=== PATIENT | female | born 1975 | race Caucasian/White ===

== ENCOUNTER → 2018-11-05 | Outpatient (REF) | payer OTHER, MEDICAID ==
[~2018-11-05] MED LIST: CIPR500T89 PO; PERC7.5T12 PO; [UNRECOGNIZED DRUG - CODE] PO; [UNRECOGNIZED DRUG - OTHER] OR; [UNRECOGNIZED DRUG - OTHER] OR; [UNRECOGNIZED DRUG - OTHER] OR; biotin OR; colace OR; cymbalta OR; flomax OR; geodon PO; lamictal OR; topamax OR; vicodin OR
[2018-11-06 12:44] LABS: AMORPHOUS SEDIMENT SMALL (NEGATIVE); APPEARANCE, URINE CLOUDY (CLEAR); BACTERIA, URINE AUTO NEGATIVE (NEGATIVE); BILIRUBIN, URINE AUTO NEGATIVE (NEGATIVE); BLOOD, URINE BLOOD NEGATIVE (NEGATIVE); CALCIUM OXALATE CRYSTALS SMALL; COLOR, URINE YELLOW (YELLOW); GLUCOSE, URINE (UA) AUTO NEGATIVE (NEGATIVE); KETONE, URINE AUTO NEGATIVE (NEGATIVE); LEUKOCYTE ESTERASE, URINE AUTO TRACE (NEGATIVE); MUCUS, URINE SMALL (NEGATIVE); NITRITE, URINE AUTO NEGATIVE (NEGATIVE); PROTEIN, URINE AUTO NEGATIVE (NEGATIVE); RBC, URINE AUTO 3 /HPF (0-3); SPECIFIC GRAVITY URINE AUTO 1.016 (1.002-1.035); SQUAMOUS EPITHELIAL CELL UR AU 8 /HPF (0-6); UROBILINOGEN, URINE AUTO 0.2 mg/dL (0.0-2.0); WBC, URINE AUTO 2 /HPF (0-3)
== END ==
LOC: M SFHCPLAZ 09:22
PROVIDERS: ATTEND Internal Medicine Infectious Disease
DX: R30.0 Dysuria (principal); Z86.14 Personal history of Methicillin resistant Staphylococcus aureus infection; R19.7 Diarrhea, unspecified

== ENCOUNTER → 2018-12-04 | Outpatient (REF) | payer OTHER, MEDICAID ==
[2018-12-04 14:16] LABS: BASO # 0.1 10^3/uL (0.0-0.2); EOS # 0.4 10^3/uL (0.0-0.50); EOS % 7.8 % (0.0-3.0); HEMATOCRIT 36.8 % (36.0-47.0); HEMOGLOBIN 12.4 g/dl (12.0-15.5); MEAN CORPUSCULAR HEMOGLOBIN 31.3 pg (27.0-33.0); MEAN CORPUSCULAR HGB CONC 33.7 g/dl (32.0-36.5); MEAN CORPUSCULAR VOLUME 92.9 fl (80.0-96.0); MONO # 0.4 10^3/uL (0.0-0.8); NEUTROPHILS # 3.3 10^3/uL (1.8-7.7); PLATELET COUNT, AUTOMATED 271 10^3/uL (150-450); RED BLOOD COUNT 3.96 10^6/uL (4.00-5.40); WHITE BLOOD COUNT 5.2 10^3/uL (4.0-10.0)
[2018-12-04 14:41] LABS: HEMOGLOBIN A1c 5.5 %
[2018-12-04 14:47] LABS: ERYTHROCYTE SEDIMENTATION RATE 17 mm/hr (0-20)
[2018-12-04 14:50] LABS: ALBUMIN 4.2 GM/DL (3.2-5.2); ALT/SGPT 27 U/L (12-78); BILIRUBIN,TOTAL 0.4 MG/DL (0.2-1.0); BLOOD UREA NITROGEN 15 MG/DL (7-18); CALCIUM LEVEL 9.4 MG/DL (8.5-10.1); CARBON DIOXIDE LEVEL 29 MEQ/L (21-32); CHLORIDE LEVEL 103 MEQ/L (98-107); CREATININE FOR GFR 0.86 MG/DL (0.55-1.30); GLOMERULAR FILTRATION RATE > 60.0 (>58); GLUCOSE, FASTING 116 MG/DL (70-100); POTASSIUM SERUM 3.7 MEQ/L (3.5-5.1); RHEUMATOID FACTOR QUANT < 10.0 IU/ML (<15.0); SODIUM LEVEL 138 MEQ/L (136-145); THYROID STIMULATING HORMONE 0.698 uIU/ML (0.358-3.740); VITAMIN B12 LEVEL 871 PG/ML
[2018-12-04 14:51] LABS: FOLATE > 24.0 NG/ML
[2018-12-09 07:26] LABS: ALBUMIN 4.26 GM/DL (3.29-5.55); ALBUMIN % 60.9 % (55.8-66.1); ALPHA-1-GLOBULIN % 4.8 % (2.9-4.9); ALPHA-1-GLOBULINS 0.34 GM/DL (0.17-0.41); ALPHA-2-GLOBULINS 0.83 GM/DL (0.42-0.99); ALPHA-2-GLOBULINS % 11.9 % (7.1-11.8); BETA-1-GLOBULINS % 5.7 % (4.7-7.2); BETA-2-GLOBULINS 0.29 GM/DL (0.19-0.55); BETA-2-GLOBULINS % 4.1 % (3.2-6.5); GAMMA GLOBULIN % 12.6 % (11.1-18.8); GAMMA GLOBULINS 0.88 GM/DL (0.65-1.58)
[2018-12-09 19:10] LABS: ANCA-ATYPICAL <1:20 titer (Neg:<1:20); ANTI DOUBLE STRAND-DNA AB 1 IU/mL (0-9); ANTINUCLEAR ANTIBODIES DIRECT Negative (Negative); CERULOPLASMIN 31.7 mg/dL (19.0-39.0); COPPER PLASMA 136 ug/dL (72-166); CYTOPLASMIC NEUTROP AB ANCA-C <1:20 titer (Neg:<1:20); LEAD BLOOD ADULT <1 ug/dL (0-4); MERCURY LEVEL None Detected ug/L (0.0-14.9); PERINUCLEAR AB ANCA-P <1:20 titer (Neg:<1:20); SJOGREN'S ANTI SS-A <0.2 AI (0.0-0.9); SJOGREN'S ANTI SS-B <0.2 AI (0.0-0.9); VITAMIN B1 LEVEL WHOLE BLOOD 173.1 nmol/L (66.5-200.0); VITAMIN B6,PYRIDOXAL PHOSPHATE 62.2 ug/L (2.0-32.8); VITAMIN E(ALPHA TOCOPHEROL) 10.5 mg/L (7.0-25.1); VITAMIN E(GAMMA TOCOPHEROL) 1.2 mg/L (0.5-5.5)
== END ==
LOC: M LABNEURO 10:38
PROVIDERS: ATTEND Psychiatry & Neurology Neurology
DX: G62.9 Polyneuropathy, unspecified (principal)

== ENCOUNTER 2019-01-29 09:16 | Day surgery (SDC) | payer OTHER ==
[~2019-01-29] VITALS: Ht 157.5 cm; Wt 58.1 kg
[~2019-01-29 09:16] MED LIST changes: +ATOR1TAB21 PO; +BIOT1TAB PO; +BUSP1TAB PO; +CLON1TAB8 PO; +CYCL10TA PO; +CYMB60CA3 PO; +DIAZ2TAB PO; +DULO60CA35 PO; +FLUOCRE; +HAIR1TAB5 PO; +IBUP80TA PO; +LOPE2CAP PO; +MECL12.575 PO; +MUPI2OI; +NS 1,000 ML IV ONE; +OMEP20CA3 PO; +OXYC15TA76 PO; +POTA10TA14 PO; +PREG100CA PO; +PREG50CA PO; +REXU1TAB2 PO; +REXU1TAB3 PO; +SPIR-10 PO; +TIZA4CAP PO; +TOLT4CAP3 PO; +VENTAER IH; +VITA500079 PO; +VYVA70CA3 PO; +[UNRECOGNIZED DRUG - CODE] PO
[2019-01-29] MEDS ORDERED: PROPOFOL 500 MG/50 ML VIAL As Ordered ONE (09:35)
[2019-01-29] MEDS ORDERED: LIDOCAINE 2% INJ 100 MG/5 ML SDV (FOR ANES.) As Ordered ONE (11:14)
--- NOTE | 2019-01-29 11:36 | ROOR ---
Patient Name: Inga Mccoy Procedure Date: 01/29/2019 10:54 AM Date of : 1975 Age: 43 Room: [facility] Gender: Female Note Status: Finalized Procedure: Upper GI endoscopy Indications: Epigastric abdominal pain Providers: Chris Sommer MD Referring MD: Christine Grijalva Requesting Provider: Medicines: Monitored Anesthesia Care Complications: No immediate complications. Procedure: Pre-Anesthesia Assessment: - Prior to the procedure, a History and Physical was performed, and patient medications and allergies were reviewed. The patient is competent. The risks and benefits of the procedure and the sedation options and risks were discussed with the patient. All questions were answered and informed consent was obtained. Patient identification and proposed procedure were verified by the physician, the nurse and the anesthesiologist in the procedure room. Mental Status Examination: alert and oriented. Airway Examination: normal oropharyngeal airway and neck mobility. Respiratory Examination: clear to auscultation. CV Examination: normal. Prophylactic Antibiotics: The patient does not require prophylactic antibiotics. Prior Anticoagulants: The patient has taken no previous anticoagulant or antiplatelet agents. ASA Grade Assessment: II - A patient with mild systemic disease. After reviewing the risks and benefits, the patient was deemed in satisfactory condition to undergo the procedure. The anesthesia plan was to use monitored anesthesia care (MAC). Immediately prior to administration of medications, the patient was re-assessed for adequacy to receive sedatives. The heart rate, respiratory rate, oxygen saturations, blood pressure, adequacy of pulmonary ventilation, and response to care were monitored throughout the procedure. The physical status of the patient was re-assessed after the procedure. The Endoscope was introduced through the mouth, and advanced to the second part of duodenum. The upper GI endoscopy was accomplished without difficulty. The patient tolerated the procedure well. Findings: The Z-line was regular and was found 36 cm from the incisors. LA Grade A (one or more mucosal breaks less than 5 mm, not extending between tops of 2 mucosal folds) esophagitis with no bleeding was found in the distal esophagus. Biopsies were taken with a cold forceps for histology. Verification of patient identification for the specimen was done by the physician and nurse using the patient's name, date and medical record number. Estimated blood loss was minimal. Scattered minimal inflammation characterized by erythema and granularity was found in the gastric antrum. Biopsies were taken with a cold forceps for Helicobacter pylori testing. No gross lesions were noted in the duodenal bulb and in the second portion of the duodenum. Biopsies for histology were taken with a cold forceps for evaluation of celiac disease. Impression: - Z-line regular, 36 cm from the incisors. - LA Grade A reflux esophagitis. Biopsied. - Gastritis. Biopsied. - No gross lesions in the duodenal bulb and in the second portion of the duodenum. Biopsied. Recommendation: - Patient has a contact number available for emergencies. The signs and symptoms of potential delayed complications were discussed with the patient. Return to normal activities tomorrow. Written discharge instructions were provided to the patient. - Resume previous diet. - Follow an antireflux regimen. - Await pathology results. - Based on the biopsy results you will receive a phone call from GI clinic in 2-3 weeks to review the pathology results AND/OR your results will be faxed to your Primary care physician. - Return to primary care physician. Chris Sommer MD Chris Sommer MD 01/29/2019 11:35:37 AM Electronically signed by Chris Sommer MD Number of Addenda: 0 Note Initiated On: 01/29/2019 10:54 AM Estimated Blood Loss: Estimated blood loss was minimal.
--- NOTE | 2019-01-29 11:39 | ROOR ---
Patient Name: Inga Mccoy Procedure Date: 01/29/2019 10:55 AM Date of : 1975 Age: 43 Room: [facility] Gender: Female Note Status: Finalized Procedure: Colonoscopy Indications: Chronic diarrhea Providers: Chris Sommer MD Referring MD: Christine Grijalva Requesting Provider: Medicines: Monitored Anesthesia Care Complications: No immediate complications. Procedure: Pre-Anesthesia Assessment: - Prior to the procedure, a History and Physical was performed, and patient medications and allergies were reviewed. The patient is competent. The risks and benefits of the procedure and the sedation options and risks were discussed with the patient. All questions were answered and informed consent was obtained. Patient identification and proposed procedure were verified by the physician, the nurse and the anesthesiologist in the procedure room. Mental Status Examination: alert and oriented. Airway Examination: normal oropharyngeal airway and neck mobility. Respiratory Examination: clear to auscultation. CV Examination: normal. Prophylactic Antibiotics: The patient does not require prophylactic antibiotics. Prior Anticoagulants: The patient has taken no previous anticoagulant or antiplatelet agents. ASA Grade Assessment: II - A patient with mild systemic disease. After reviewing the risks and benefits, the patient was deemed in satisfactory condition to undergo the procedure. The anesthesia plan was to use monitored anesthesia care (MAC). Immediately prior to administration of medications, the patient was re-assessed for adequacy to receive sedatives. The heart rate, respiratory rate, oxygen saturations, blood pressure, adequacy of pulmonary ventilation, and response to care were monitored throughout the procedure. The physical status of the patient was re-assessed after the procedure. The Colonoscope was introduced through the anus and advanced to the terminal ileum, with identification of the appendiceal orifice and IC valve. The colonoscopy was performed without difficulty. The patient tolerated the procedure well. The quality of the bowel preparation was good. The terminal ileum, ileocecal valve, appendiceal orifice, and rectum were photographed. Scope insertion time was 3 minutes. Scope withdrawal time was 9 minutes. The total duration of the procedure was 12 minutes. Findings: The perianal and digital rectal examinations were normal. The terminal ileum appeared normal. A diffuse area of moderate melanosis was found from cecum to descending colon. Biopsies for histology were taken with a cold forceps from the right colon, left colon, transverse colon and rectosigmoid colon for evaluation of microscopic colitis. Verification of patient identification for the specimen was done by the physician and nurse using the patient's name, date and medical record number. Estimated blood loss was minimal. Non-bleeding external and internal hemorrhoids were found during retroflexion. The hemorrhoids were medium-sized. Impression: - The examined portion of the ileum was normal. - Melanosis in the colon. Biopsied. - Non-bleeding external and internal hemorrhoids. Recommendation: - Patient has a contact number available for emergencies. The signs and symptoms of potential delayed complications were discussed with the patient. Return to normal activities tomorrow. Written discharge instructions were provided to the patient. - Resume previous diet. - Continue present medications. - Await pathology results. - Repeat colonoscopy in 5-10 years for screening purposes. - Based on the biopsy results you will receive a phone call from GI clinic in 2-3 weeks to review the pathology results AND/OR your results will be faxed to your Primary care physician. - Return to primary care physician. Chris Sommer MD Chris Smomer MD 01/29/2019 11:39:09 AM Electronically signed by Chris Sommer MD Number of Addenda: 0 Note Initiated On: 01/29/2019 10:55 AM Estimated Blood Loss: Estimated blood loss was minimal.
[2019-01-29 12:00] VITALS: BP 121/80
== END 2019-01-29 12:13 | disposition home or self-care (01) ==
LOC: M OPP 09:16
PROVIDERS: ATTEND Internal Medicine Gastroenterology
DX: K64.8 Other hemorrhoids (principal); K52.9 Noninfective gastroenteritis and colitis, unspecified; R19.7 Diarrhea, unspecified; R10.13 Epigastric pain; K29.70 Gastritis, unspecified, without bleeding; K21.0 Gastro-esophageal reflux disease with esophagitis

== ENCOUNTER → 2019-03-11 | Outpatient (REF) | payer OTHER ==
[~2019-03-11] MED LIST changes: -NS 1,000 ML IV ONE
[2019-03-11 12:49] LABS: HEMOGLOBIN A1c 5.9 %
[2019-03-11 12:59] LABS: FREE T4 1.12 NG/DL (0.76-1.46); THYROID STIMULATING HORMONE 0.941 uIU/ML (0.358-3.740); TOTAL T3 129.3 NG/DL (60.0-181.0)
[2019-03-12 10:58] LABS: HEPATITIS C VIRUS ABY INDEX 0.1 INDEX (<0.8); HIV 1&2 SCREEN CENTAUR NEGATIVE (NEGATIVE)
== END ==
LOC: M SFHCPLAZ 08:50
PROVIDERS: ATTEND Internal Medicine Infectious Disease
DX: R63.4 Abnormal weight loss (principal); R19.7 Diarrhea, unspecified; R74.8 Abnormal levels of other serum enzymes

== ENCOUNTER 2019-04-08 11:32 | Emergency (ER) | payer OTHER ==
[~2019-04-08] VITALS: Ht 157.5 cm; Wt 59.1 kg
[2019-04-08 12:01] VITALS: BP 137/85
[2019-04-08] MEDS ORDERED: LORazepam 2 MG TAB PO STA (12:31)
[2019-04-08] MEDS ORDERED: IBUPROFEN 600 MG TAB PO ONE (13:15)
[2019-04-08 13:45] LABS: HEMATOCRIT 42.1 % (36.0-47.0); HEMOGLOBIN 14.2 g/dl (12.0-15.5); MEAN CORPUSCULAR HEMOGLOBIN 31.8 pg (27.0-33.0); MEAN CORPUSCULAR HGB CONC 33.7 g/dl (32.0-36.5); MEAN CORPUSCULAR VOLUME 94.2 fl (80.0-96.0); PLATELET COUNT, AUTOMATED 287 10^3/uL (150-450); RED BLOOD COUNT 4.47 10^6/uL (4.00-5.40); WHITE BLOOD COUNT 8.1 10^3/uL (4.0-10.0)
[2019-04-08 14:16] LABS: ACETAMINOPHEN LEVEL < 2.0 UG/ML (10.0-30.0); ALT/SGPT 43 U/L (12-78); BILIRUBIN,DIRECT 0.1 MG/DL (0.0-0.2); BILIRUBIN,TOTAL 0.3 MG/DL (0.2-1.0); BLOOD UREA NITROGEN 21 MG/DL (7-18); CALCIUM LEVEL 9.9 MG/DL (8.5-10.1); CARBON DIOXIDE LEVEL 27 MEQ/L (21-32); CHLORIDE LEVEL 104 MEQ/L (98-107); CREATININE FOR GFR 0.93 MG/DL (0.55-1.30); ETHYL ALCOHOL (ETHANOL) < 0.003 % (0.000-0.010); GLOMERULAR FILTRATION RATE > 60.0 (>58); GLUCOSE, FASTING 107 MG/DL (70-100); SALICYLATE LEVEL 3.2 MG/DL (5.0-30.0); SODIUM LEVEL 140 MEQ/L (136-145); THYROID STIMULATING HORMONE 0.721 uIU/ML (0.358-3.740); TOTAL PROTEIN 7.7 GM/DL (6.4-8.2)
[2019-04-08] MEDS ORDERED: ALPR1TAB3 (14:19)
[2019-04-08] MEDS ORDERED: REXU1TAB5 (14:19)
[2019-04-08] MEDS ORDERED: oxyCODONE 5MG TAB PO ONE (14:45)
== END 2019-04-08 17:20 | disposition home or self-care (01) ==
LOC: M ED 11:32
DX: F41.9 Anxiety disorder, unspecified (principal); F32.9 Major depressive disorder, single episode, unspecified; J45.909 Unspecified asthma, uncomplicated; Z87.442 Personal history of urinary calculi; F19.10 Other psychoactive substance abuse, uncomplicated; M79.7 Fibromyalgia; R05 Cough; R63.4 Abnormal weight loss; Z86.14 Personal history of Methicillin resistant Staphylococcus aureus infection; F12.10 Cannabis abuse, uncomplicated; Z72.0 Tobacco use; Z79.899 Other long term (current) drug therapy; Z91.041 Radiographic dye allergy status; Z88.0 Allergy status to penicillin; Z88.2 Allergy status to sulfonamides
CPT/HCPCS: 36415; 80048; 80076; 84443; 85027; 99284; G0480

== ENCOUNTER 2019-04-09 15:22 | Emergency (ER) | payer OTHER ==
[~2019-04-09] VITALS: Ht 157.5 cm; Wt 59.1 kg
[~2019-04-09 15:22] MED LIST changes: +ALPR1TAB3; +REXU1TAB5
[2019-04-09 15:31] VITALS: BP 122/80
== END 2019-04-09 20:59 | disposition left against medical advice (07) ==
LOC: M ED 15:22
DX: Z76.0 Encounter for issue of repeat prescription (principal); I10 Essential (primary) hypertension; F41.9 Anxiety disorder, unspecified; F32.9 Major depressive disorder, single episode, unspecified; M79.7 Fibromyalgia; J45.909 Unspecified asthma, uncomplicated; Z86.14 Personal history of Methicillin resistant Staphylococcus aureus infection; F17.200 Nicotine dependence, unspecified, uncomplicated; Z88.0 Allergy status to penicillin; Z88.2 Allergy status to sulfonamides; Z91.041 Radiographic dye allergy status; Z79.899 Other long term (current) drug therapy

== ENCOUNTER 2019-08-10 07:28 | Day surgery (SDC) | payer OTHER ==
[~2019-08-10] VITALS: Ht 157.5 cm; Wt 74.4 kg
[~2019-08-10 07:28] MED LIST changes: +LR 1,000 ML IV ONE; +LevoFLOXacin IV 500 MG in IV 1 EA IV ONE; +MM S100C PO; -OMEP20CA3 PO; +OMEP20CA4 PO; +SENN8.6T28 PO; +[UNRECOGNIZED DRUG - OTHER] PO
[2019-08-10] MEDS ORDERED: dexameTHASONE 4 MG/ML 1ML VIAL (J1100) As Ordered ONE (09:11)
[2019-08-10] MEDS ORDERED: fentaNYL 100 MCG/2 ML INJECTION (J3010) As Ordered ONE ×2 (09:11→12:09)
[2019-08-10] MEDS ORDERED: ONDANSETRON 4MG/2ML VIAL (J2405) As Ordered ONE ×2 (09:11→12:08)
[2019-08-10] MEDS ORDERED: MIDAZOLAM INJ 2 MG/2 ML VIAL (J2250) As Ordered ONE (09:11)
[2019-08-10] MEDS ORDERED: LIDOCAINE 2% INJ 100 MG/5 ML SDV (FOR ANES.) As Ordered ONE (09:11)
[2019-08-10] MEDS ORDERED: PROPOFOL 200 MG/20 ML VIAL As Ordered ONE (09:11)
[2019-08-10] MEDS ORDERED: CONRAY-60 60% 50ML VIAL (Q9961) As Ordered ONE (11:10)
[2019-08-10] MEDS ORDERED: ACETAMINOPHEN 1000MG 100ML IV BTL (OFIRMEV) (J0131 PER 10MG) As Ordered ONE (11:15)
[2019-08-10] MEDS ORDERED: ePHEDrine SULFATE 25 MG/5 ML(5MG/ML) SYRINGE As Ordered ONE (11:19)
[2019-08-10] MEDS ORDERED: PHENYLephrine HCL 500 MCG/5 ML (100MCG/ML) SYRINGE (J2370) As Ordered ONE (11:19)
--- NOTE | 2019-08-10 12:10 | REP ---
C-ARM VIEW ABDOMEN: C-arm view abdomen performed. Left ureteral stent is visualized. The distal end is coiled in the urinary bladder. The proximal end is coiled in the region of the left renal collecting system. 9 seconds fluoroscopy time utilized. Electronically Signed by Juan Rooney MD 08/11/2019 11:46 A
[2019-08-10] MEDS ORDERED: ONDANSETRON 4MG/2ML VIAL (J2405) IV PRN (12:15)
[2019-08-10] MEDS ORDERED: LR 1,000 ML IV SCH (12:15)
[2019-08-10] MEDS ORDERED: OXYB5TAB2 PO ×2 (12:19→12:41)
[2019-08-10] MEDS ORDERED: MACR100C43 PO ×2 (12:19→12:41)
[2019-08-10] MEDS ORDERED: NORC1TAB7 PO ×2 (12:19→12:41)
[2019-08-10] MEDS: fentaNYL 100 MCG/2 ML INJECTION (J3010) IV PRN ×4 (12:24→12:53)
[2019-08-10] MEDS: PERCOCET 5MG/325MG TAB PO PRN ×2 (12:24→12:53)
[2019-08-10 13:50] VITALS: BP 106/63
--- NOTE | 2019-08-11 06:37 | RO ---
DATE OF PROCEDURE: 08/10/2019 PREOPERATIVE DIAGNOSIS: Left ureteral stone with history of infection. POSTOPERATIVE DIAGNOSIS: Left ureteral stone with history of infection. PROCEDURE PERFORMED: Left ureteroscopic stone extraction. 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 INDICATION: This 44-year-old lady with a long history of recurrent urolithiasis had a stent placed for a presumed infected stone at an outside facility. She comes now for stone removal. PROCEDURE: After obtaining informed consent from the patient, she was taken to the operating room where after sufficient anesthetic, she was prepped and draped in the usual manner. A 22-Moroccan diagnostic cystoscope was advanced to the bladder. The stent was visualized, grasped and withdrawn to the urethral meatus. The stent was was cannulated with an 0.038 inch Glidewire and the flexible ureteroscope passed to the kidney over the wire without difficulty. We then brought the scope back into the ureter and identified the stone near the ureteropelvic junction and the proximal ureter. We were able to grasp this with a 1.9 Moroccan basket and withdraw it without difficulty. We then reinspected the collecting system. There was a fair amount of clot both in the kidney and bladder and we felt that further stenting was indicated for this region. The wire was repassed and the procedure was concluded with placement of a 6 Moroccan universal stent with the string left attached. The bladder was emptied and the patient went to recovery in satisfactory condition. DISPOSITION: Dismissed home on Macrobid 100 mg at bedtime, oxybutynin ER 5 mg daily and Troy 5 one by mouth every 4 hours as needed for pain. Diet as tolerated. Activity light. Followup in 5-7 days for stent removal. She is not to pull the string. Addendum: Pharmacy calls to report pt on pain mgmt contract with recent refill of narcotics - Troy Rx from today was cancelled. [facility]
== END 2019-08-10 13:55 | disposition home or self-care (01) ==
LOC: M SDC 07:28
PROVIDERS: ATTEND Urology
DX: N20.1 Calculus of ureter (principal); I10 Essential (primary) hypertension; E78.00 Pure hypercholesterolemia, unspecified; K58.9 Irritable bowel syndrome, unspecified; K21.9 Gastro-esophageal reflux disease without esophagitis; M79.7 Fibromyalgia; F41.9 Anxiety disorder, unspecified; F25.9 Schizoaffective disorder, unspecified; F32.9 Major depressive disorder, single episode, unspecified; G43.909 Migraine, unspecified, not intractable, without status migrainosus; J45.909 Unspecified asthma, uncomplicated; R06.83 Snoring; F12.90 Cannabis use, unspecified, uncomplicated; F17.210 Nicotine dependence, cigarettes, uncomplicated; G47.30 Sleep apnea, unspecified; R32 Unspecified urinary incontinence; T88.59XD Other complications of anesthesia, subsequent encounter; Z88.0 Allergy status to penicillin; Z88.2 Allergy status to sulfonamides; Z88.8 Allergy status to other drugs, medicaments and biological substances; Z91.041 Radiographic dye allergy status; Z86.14 Personal history of Methicillin resistant Staphylococcus aureus infection; Z90.710 Acquired absence of both cervix and uterus
CPT/HCPCS: 52332; 52352; 74420; 82360; 88300; C1769; C2617; J0131; J1100; J1956; J2250; J2370; J2405; J3010

== ENCOUNTER → 2019-08-16 | Outpatient (REF) | payer OTHER ==
[~2019-08-16] MED LIST changes: -LR 1,000 ML IV ONE; -LevoFLOXacin IV 500 MG in IV 1 EA IV ONE; +MACR100C43 PO; +NORC1TAB7 PO; +OXYB5TAB2 PO
[2019-08-16 17:51] LABS: APPEARANCE, URINE CLOUDY (CLEAR); BACTERIA, URINE AUTO NEGATIVE (NEGATIVE); BILIRUBIN, URINE AUTO NEGATIVE (NEGATIVE); BLOOD, URINE BLOOD 3+ (NEGATIVE); CALCIUM OXALATE CRYSTALS SMALL; COLOR, URINE YELLOW (YELLOW); GLUCOSE, URINE (UA) AUTO NEGATIVE (NEGATIVE); KETONE, URINE AUTO NEGATIVE (NEGATIVE); LEUKOCYTE ESTERASE, URINE AUTO 2+ (NEGATIVE); MUCUS, URINE SMALL (NEGATIVE); NITRITE, URINE AUTO NEGATIVE (NEGATIVE); PROTEIN, URINE AUTO 2+ mg/dL (NEGATIVE); RBC, URINE AUTO TNTC /HPF (0-3); SPECIFIC GRAVITY URINE AUTO 1.021 (1.002-1.035); SQUAMOUS EPITHELIAL CELL UR AU 2 /HPF (0-6); UROBILINOGEN, URINE AUTO 0.2 mg/dL (0.0-2.0); WBC, URINE AUTO 49 /HPF (0-3)
== END ==
LOC: M SMT 16:50
PROVIDERS: ATTEND Nurse Practitioner Women's Health
DX: N20.0 Calculus of kidney (principal)

== ENCOUNTER → 2024-01-06 | Outpatient (REF) | payer OTHER, MEDICAID ==
[~2024-01-06] MED LIST changes: +CYCL-707 PO; -CYCL10TA PO; -CYMB60CA3 PO; +CYMB60CA4 PO; +MECL-136 PO; -MECL12.575 PO; +OMEP1CAP73 PO; -OMEP20CA4 PO; +OXYB-54 PO; -OXYB5TAB2 PO; +OXYC-1 PO; -OXYC15TA76 PO; -POTA10TA14 PO; +POTA1TAB24 PO
[2024-01-06 17:11] LABS: EOS # 0.3 10^3/uL (0.0-0.5); EOS % 6.5 % (0.0-3.0); HEMATOCRIT 40.2 % (36.0-47.0); HEMOGLOBIN 13.3 g/dl (12.0-15.5); LYMPH # 1.4 10^3/uL (1.5-5.0); LYMPH % 32.4 % (24.0-44.0); MEAN CORPUSCULAR HEMOGLOBIN 31.3 pg (27.0-33.0); MEAN CORPUSCULAR HGB CONC 33.1 g/dl (32.0-36.5); MEAN CORPUSCULAR VOLUME 94.6 fl (80.0-96.0); MONO # 0.3 10^3/uL (0.0-0.8); MONO % 8.2 % (2.0-8.0); NEUTROPHILS # 2.2 10^3/uL (1.5-8.5); NEUTROPHILS % 51.7 % (36.0-66.0); PLATELET COUNT, AUTOMATED 287 10^3/uL (150-450); RED BLOOD COUNT 4.25 10^6/uL (4.00-5.40); WHITE BLOOD COUNT 4.2 10^3/uL (4.0-10.0)
[2024-01-06 17:38] LABS: COMPLEMENT C3 126.4 MG/DL (90.0-170.0); COMPLEMENT C4 27.1 MG/DL (12-36); FREE T4 1.15 NG/DL (0.89-1.76); IMMUNOGLOBULIN A 129.1 MG/DL (40-350); MAGNESIUM LEVEL 2.1 MG/DL (1.8-2.4); THYROID STIMULATING HORMONE 0.666 uIU/ML (0.55-4.78)
[2024-01-06 17:39] LABS: PERCENT SATURATION 14.1 % (13.2-45.0)
[2024-01-06 17:40] LABS: TOTAL 25(OH) VITAMIN D 35.4 NG/ML (20.0-100.0)
[2024-01-08 19:09] LABS: COMPLEMENT TOTAL (CH50) 57 U/mL (>41)
== END ==
LOC: M SFHCRHEU 14:32
PROVIDERS: ATTEND Internal Medicine
DX: M79.7 Fibromyalgia (principal); D72.810 Lymphocytopenia

== ENCOUNTER → 2024-01-15 | Outpatient (CLI) | payer MEDICARE, OTHER | LOC: M PLAIMG 08:44 | PROVIDERS: ATTEND Physician Assistant | DX: M67.432 Ganglion, left wrist (principal) ==

== ENCOUNTER 2024-02-13 10:18 | Day surgery (SDC) | payer MEDICARE ==
[~2024-02-13] VITALS: Ht 157.5 cm; Wt 82.8 kg
[~2024-02-13 10:18] MED LIST changes: +BIOT1CAP2 PO; +BUSP10TA PO; +CYCL5TAB PO; +DULO1CAP6 PO; +GABA-1171 PO; +GABA-282 PO; +OMEP-173 PO; +OXYB10TA23 PO; +OXYC10TA12 PO; +REXU1TAB4 PO; +REXU1TAB6 PO
[2024-02-13] MEDS ORDERED: ALBUTEROL SULFATE 2.5MG/0.5ML INH NEB SOLN INH PRN ×2 (10:30)
[2024-02-13] MEDS ORDERED: LR 1,000 ML IV SCH ×2 (10:30→12:20)
[2024-02-13] MEDS ORDERED: ONDANSETRON 4MG 2ML VIAL As Ordered ONE (11:00)
[2024-02-13] MEDS ORDERED: propofoL 200 MG/20 ML VIAL As Ordered ONE (11:00)
[2024-02-13] MEDS ORDERED: fentaNYL 100 MCG/2 ML INJECTION As Ordered ONE (11:00)
[2024-02-13] MEDS ORDERED: LIDOCAINE 2% 100MG/5ML SDV (FOR ANES.) As Ordered ONE (11:00)
[2024-02-13] MEDS ORDERED: MIDAZOLAM INJ 2MG/2ML VIAL As Ordered ONE (11:00)
[2024-02-13] MEDS ORDERED: KETOROLAC 60MG 2ML VIAL As Ordered ONE (11:01)
[2024-02-13] MEDS: LR 1,000 ML IV SCH (11:11)
[2024-02-13] MEDS: VANCOMYCIN HCL 1,000 MG, VIAL MATE ADAPTER 1 EACH in NS 250 ML IV ONE (11:12)
[2024-02-13] MEDS: BACITRACIN OINTMENT 30GM TUBE As Ordered ONE (12:09)
[2024-02-13] MEDS ORDERED: METOCLOPRAMIDE INJ 10MG/2ML VIAL IV PRN (12:20)
[2024-02-13] MEDS ORDERED: ONDANSETRON 4MG 2ML VIAL IV PRN (12:20)
[2024-02-13] MEDS: fentaNYL 100 MCG/2 ML INJECTION IV PRN (12:44)
[2024-02-13] MEDS: oxyCODONE 5MG TAB PO PRN (12:52)
[2024-02-13] MEDS: oxyCODONE 5MG TAB PO ONE (13:09)
[2024-02-13] MEDS: HYDROMORPHONE HCL 0.5 MG/ 0.5 ML SYRINGE IV PRN (13:13)
[2024-02-13] MEDS: MORPHINE 4 MG/ML 1ML VIAL IV ONE (14:29)
[2024-02-13 14:50] VITALS: BP 127/83; TEMP 97.6; O2SAT 99
== END 2024-02-13 14:56 | disposition home or self-care (01) ==
LOC: M SDC 10:18
PROVIDERS: ATTEND Orthopaedic Surgery Hand Surgery
DX: R22.32 Localized swelling, mass and lump, left upper limb (principal); G56.02 Carpal tunnel syndrome, left upper limb; G47.30 Sleep apnea, unspecified; M79.7 Fibromyalgia; K21.9 Gastro-esophageal reflux disease without esophagitis; E78.5 Hyperlipidemia, unspecified; F06.33 Mood disorder due to known physiological condition with manic features; F32.A Depression, unspecified; F41.9 Anxiety disorder, unspecified; G43.909 Migraine, unspecified, not intractable, without status migrainosus; J45.909 Unspecified asthma, uncomplicated; F17.290 Nicotine dependence, other tobacco product, uncomplicated; Z91.041 Radiographic dye allergy status; Z88.0 Allergy status to penicillin; Z88.2 Allergy status to sulfonamides; Z88.8 Allergy status to other drugs, medicaments and biological substances; Z79.899 Other long term (current) drug therapy; Z79.890 Hormone replacement therapy; Z87.891 Personal history of nicotine dependence
CPT/HCPCS: 25111; 29848; 88305; J0665; J1100; J1170; J1885; J2250; J2405; J3010; J3370

== ENCOUNTER → 2024-03-01 | Outpatient (CLI) | payer MEDICARE, OTHER ==
[~2024-03-01] MED LIST changes: +READI-CAT 2 As Ordered ONE
== END ==
LOC: M RAD 07:24
PROVIDERS: ATTEND Surgery
DX: R10.30 Lower abdominal pain, unspecified (principal); N28.89 Other specified disorders of kidney and ureter

== ENCOUNTER 2024-04-06 12:53 | Day surgery (SDC) | payer MEDICARE, OTHER ==
[~2024-04-06] VITALS: Ht 157.5 cm; Wt 81.8 kg
[~2024-04-06 12:53] MED LIST changes: -READI-CAT 2 As Ordered ONE
[2024-04-06] MEDS: NS 1,000 ML IV ONE (13:17)
[2024-04-06] MEDS ORDERED: MIDAZOLAM INJ 2MG/2ML VIAL As Ordered ONE (14:21)
[2024-04-06] MEDS ORDERED: propofoL 200 MG/20 ML VIAL As Ordered ONE (14:49)
[2024-04-06] MEDS ORDERED: LIDOCAINE 2% 100MG/5ML SDV (FOR ANES.) As Ordered ONE (14:49)
[2024-04-06 15:09] VITALS: TEMP 98.1
[2024-04-06 15:25] VITALS: BP 152/69; O2SAT 99
== END 2024-04-06 15:42 | disposition home or self-care (01) ==
LOC: M OPP 12:53
PROVIDERS: ATTEND Surgery
DX: Z12.11 Encounter for screening for malignant neoplasm of colon (principal); Z80.0 Family history of malignant neoplasm of digestive organs; K63.89 Other specified diseases of intestine; F17.290 Nicotine dependence, other tobacco product, uncomplicated; Z79.891 Long term (current) use of opiate analgesic; Z79.899 Other long term (current) drug therapy; Z88.0 Allergy status to penicillin; Z88.8 Allergy status to other drugs, medicaments and biological substances; Z91.030 Bee allergy status; Z91.041 Radiographic dye allergy status

== ENCOUNTER 2025-07-25 07:59 | Day surgery (SDC) | payer MEDICARE, OTHER ==
[~2025-07-25] VITALS: Ht 157.5 cm; Wt 73.7 kg
[~2025-07-25 07:59] MED LIST changes: +CLEO300C2 PO; +CVS1CAP2 PO; -CYCL5TAB PO; +CYCL5TAB4 PO; +EXEM25TA PO; +GABA-1172 PO; -GABA-282 PO; +OMEG-28 PO; +PREG-35 PO; -PREG100CA PO; -PREG50CA PO; +PREG50CA87 PO
[2025-07-25] MEDS ORDERED: SODIUM CHLORIDE 0.9% INJ 10 ML SYR IV PRN (08:15)
[2025-07-25] MEDS ORDERED: LIDOCAINE 2% 100 MG/5 ML SDV (FOR ANES.) As Ordered ONE (08:42)
[2025-07-25] MEDS ORDERED: MIDAZOLAM INJ 2 MG/2 ML VIAL As Ordered ONE (08:43)
[2025-07-25] MEDS ORDERED: PHENYLephrine 500MCG 5ML (100MCG/ML) SYRINGE As Ordered ONE (09:06)
[2025-07-25 09:17] VITALS: TEMP 97
[2025-07-25 09:35] VITALS: BP 114/73; O2SAT 95
[2025-07-25] MEDS: HEPARIN LOCK FLUSH 100 UNITS/ML 3 ML SYRINGE IV PRN (09:45)
== END 2025-07-25 09:57 | disposition home or self-care (01) ==
LOC: M OPP 07:59
PROVIDERS: ATTEND Internal Medicine Gastroenterology
DX: K64.0 First degree hemorrhoids (principal); R93.3 Abnormal findings on diagnostic imaging of other parts of digestive tract; R12 Heartburn
CPT/HCPCS: 43239; 45378; 88305; J1642; J2250; J2371